=== PATIENT | male | born 1970 | race Caucasian/White ===

== ENCOUNTER 2018-03-25 07:45 | Emergency (ER) | payer OTHER ==
[~2018-03-25] VITALS: Ht 175.3 cm; Wt 104.5 kg
[~2018-03-25 07:45] MED LIST: CLARITIN10 MG PO; LO-DOSE ASPIRIN81 M1 PO; NASONEX17 GM NS; PROVENTIL17 GM IH; XALATAN2.5 ML BOTH EYES; ZANTAC150 MG PO
[2018-03-25 08:18] LABS: APPEARANCE CLEAR ((CLEAR)); BILIRUBIN NEGATIVE; BLOOD SMALL; COLOR YELLOW ((YELLOW)); GLUCOSE (STRIP) NEGATIVE; KETONES NEGATIVE; LEUKOCYTES TRACE; NITRITE NEGATIVE; PROTEIN (STRIP) 30; SPECIFIC GRAVITY 1.015 (1.000-1.030); UROBILINOGEN 0.2 MG/DL (0.2-1.0)
[2018-03-25 08:22] LABS: BACTERIA RARE /HPF; EPITHELIAL CELLS RARE /HPF; MUCUS 2+ /LPF
[2018-03-25 08:29] LABS: HEMATOCRIT 35.9 % (38.0-50.0); HEMOGLOBIN 12.4 G/DL (12.5-16.6); MCH 28.2 PG (29.0-34.0); MCHC 34.5 G/DL (30.0-36.0); MCV 81.6 FL (86-99); PLATELET COUNT 325 K/uL (156-360); RBC DIS.WIDTH-CV 12.6 % (11.8-14.6); RBC DIS.WIDTH-SD 37.5 % (39-53); WHITE BLOOD COUNT 9.8 K/uL (4.1-10.2)
[2018-03-25 08:37] LABS: CHLORIDE 105 mEq/L (99-109); POTASSIUM 3.7 mEq/L (3.7-5.4); SODIUM 141 mEq/L (136-147)
[2018-03-25 08:39] LABS: GLUCOSE 142 mg/dL (70-99)
[2018-03-25 08:42] LABS: CREATININE 0.9 mg/dL (0.6-1.3); GFR ESTIMATE (CALCULATED) > 59 mL/min/ (58.99-99999)
[2018-03-25 08:43] LABS: UREA NITROGEN (BUN) 14 mg/dL (9-23)
[2018-03-25] MEDS ORDERED: ZOFRAN ODT4 MG PO (10:11)
[2018-03-25] MEDS ORDERED: PERCOCET 5/31 TABLET PO (10:11)
[2018-03-25] MEDS ORDERED: ULTRAM50 MG PO (10:33)
[2018-03-25 10:45] VITALS: BP 151/108
[2018-03-26] MEDS ORDERED: PROVENTIL HFA6.7 GM IH (12:44)
[2018-03-26] MEDS ORDERED: METFORMIN HCL1000 MG PO (12:45)
[2018-03-26] MEDS ORDERED: JANUVIA100 MG PO (12:45)
[2018-03-26] MEDS ORDERED: AMLODIPINE BESY10 MG PO (12:45)
[2018-03-26] MEDS ORDERED: LISINOPRIL30 MG PO (12:45)
== END 2018-03-25 10:45 | disposition home or self-care (01) ==
LOC: EME 07:45
PROVIDERS: Emergency Medicine
DX: N20.1 Calculus of ureter (principal); I10 Essential (primary) hypertension; J45.909 Unspecified asthma, uncomplicated; E11.9 Type 2 diabetes mellitus without complications; Z87.442 Personal history of urinary calculi; Z79.82 Long term (current) use of aspirin
CPT/HCPCS: 74176; 80048; 81003; 85027; 99281; 99285; J7030

== ENCOUNTER 2018-03-29 10:41 | Day surgery (SDC) | payer OTHER ==
[~2018-03-29] VITALS: Ht 175.3 cm; Wt 104.3 kg
[~2018-03-29 10:41] MED LIST changes: +AMLODIPINE BESY10 MG PO; +JANUVIA100 MG PO; +LISINOPRIL30 MG PO; +METFORMIN HCL1000 MG PO; +PERCOCET 5/31 TABLET PO; +PROVENTIL HFA6.7 GM IH; +ULTRAM50 MG PO; +ZOFRAN ODT4 MG PO
[2018-03-29 12:19] VITALS: BP 144/88
[2018-03-29 15:00] VITALS: BP 156/91
[2018-03-29 16:15] VITALS: BP 137/88
== END 2018-03-29 16:24 | disposition home or self-care (01) ==
LOC: SDC 10:41
PROVIDERS: Urology
DX: N20.1 Calculus of ureter (principal); E11.9 Type 2 diabetes mellitus without complications; Z79.84 Long term (current) use of oral hypoglycemic drugs; J45.909 Unspecified asthma, uncomplicated; E78.5 Hyperlipidemia, unspecified; K21.9 Gastro-esophageal reflux disease without esophagitis; I10 Essential (primary) hypertension; Z82.49 Family history of ischemic heart disease and other diseases of the circulatory system; Z83.3 Family history of diabetes mellitus; Z87.891 Personal history of nicotine dependence
CPT/HCPCS: 74420; 82948; 93005; C1758; C1769; C2625; J0690; J1170; J2405; J3010